=== PATIENT | female | born 1975 | race Caucasian/White ===

== ENCOUNTER 2017-08-23 12:05 | Emergency (ER) | payer BC ==
[~2017-08-23] VITALS: Ht 157.5 cm; Wt 49.9 kg
--- NOTE | 2017-08-23 12:16 | NUR ---
A/OX4, AMBULATORY TO ED BED 14 C/O LOW BACK PAIN AND FREQUENT URINATION SINCE LAST WEEK. PT STARTED TAKING MACROBID YESTERDAY FOR UTI. SHE STARTED HAVING NASUEA AND CHILLS YESTERDAY. PT WAS SEEN AT AN URGENT CARE TODAY AND WAS SENT HERE FOR EVALUATION. PT IS FEBRILE AT 101 'F. ALL NEEDS ARE ATTENDED, KEPT COMFORTABLE. PENDING ER MD EVALUATION
[2017-08-23] MEDS: MORPHINE SULFATE INJ 2 MG/ML DISP.SYRIN IV ONE (12:30)
[2017-08-23 12:44] LABS: BASOPHILS # (AUTO) 0.1 /CMM (0.0-0.2); BASOPHILS % (AUTO) 1.3 % (0.0-2.0); EOSINOPHILS % (AUTO) 0.6 % (0.0-6.0); HEMATOCRIT 41 % (33-45); HEMOGLOBIN 14.1 g/dL (11.5-14.8); LYMPHOCYTES # (AUTO) 0.2 /CMM (0.8-4.8); LYMPHOCYTES % (AUTO) 2.2 % (20.0-44.0); MEAN CORPUSCULAR HGB CONC 34 g/dl (31.0-36.0); MEAN CORPUSCULAR VOLUME 91 fL (82-100); MONOCYTES # (AUTO) 0.1 /CMM (0.1-1.30); MONOCYTES % (AUTO) 1.5 % (2.0-12.0); NEUTROPHILS # (AUTO) 8.9 /CMM (1.8-8.9); NEUTROPHILS % (AUTO) 94.4 % (43.0-81.0); PLATELET COUNT (AUTO) 211 /CMM (150-450); RDW COEFFICIENT OF VARIATION 12.1 (11.5-15.0); RED BLOOD CELL COUNT(AUTO) 4.54 MIL/uL (4.0-5.2); WHITE BLOOD COUNT (AUTO) 9.4 K/uL (4.3-11.0)
[2017-08-23] MEDS ORDERED: MORPHINE SULFATE INJ 4 MG/ML DISP.SYRIN ONE (12:45)
[2017-08-23] MEDS ORDERED: KETOROLAC TROMETHAMINE INJ 30 MG/ML VIAL ONE (12:45)
[2017-08-23] MEDS ORDERED: ONDANSETRON HCL/PF 4 MG/2 ML VIAL ONE (12:45)
[2017-08-23] MEDS ORDERED: CEFTRIAXONE 1GM BAG (ER ONLY) 50 ML IV ONE ×2 (12:45→13:05)
[2017-08-23 12:48] LABS: APPEARANCE,URINE Clear (CLEAR); BILIRUBIN,URINE Negative (NEGATIVE); BLOOD, URINE Negative Ery/uL (NEGATIVE); COLOR,URINE Yellow (YELLOW); KETONES,URINE Negative (NEGATIVE); LEUKOCYTE ESTERASE ,URINE Trace (NEGATIVE); NITRITE, URINE Negative (NEGATIVE); PH,URINE 7.5 (5.0-8.0); PROTEIN,URINE Negative (NEGATIVE); UGLUCOSE Negative (NEGATIVE); UROBILINOGEN,URINE 0.2 EU/dL (0.2)
[2017-08-23 12:52] LABS: CALCIUM, SERUM 8.5 mg/dL (8.5-10.1); CREATININE 0.6 mg/dL (0.6-1.3); POTASSIUM 3.5 mmol/L (3.5-5.1)
[2017-08-23 12:53] LABS: BACTERIA,URINE Few /HPF (None Seen); RBC,URINE 0-2 /HPF (0-2); SQUAMOUS EPITHELIAL CELL,UR Many /HPF (None Seen)
[2017-08-23] MEDS: IV NS 0.9% 1,000 ML BAG IV ONE ×2 (12:56→13:00)
[2017-08-23] MEDS: ONDANSETRON HCL/PF 4 MG/2 ML VIAL IVP ONE (12:57)
[2017-08-23] MEDS: KETOROLAC TROMETHAMINE INJ 30 MG/ML VIAL IV ONE (12:59)
[2017-08-23] MEDS: CEFTRIAXONE 2 G in IV D5W 50 ML IV ONE (12:59)
--- NOTE | 2017-08-23 13:30 | NUR ---
Patient is resting comfortably in bed with eyes closed. Easily aroused. VSS
--- NOTE | 2017-08-23 14:29 | NUR ---
IV removed. Catheter intact and site benign. Pressure and 4x4 applied to site. No bleeding noted.Patient discharged to home in stable condition. Written and verbal after care instructions given. Patient verbalizes understanding of instruction.
[2017-08-23 14:32] VITALS: BP 110/67
== END 2017-08-23 14:39 | disposition home or self-care (01) ==
LOC: ER 12:06
DX: N12 Tubulo-interstitial nephritis, not specified as acute or chronic (principal); Z91.011 Allergy to milk products
CPT/HCPCS: 36415; 80048-TC; 81000-TC; 83605-TC; 84703-TC; 85025-TC; 87040-TC; 87086-TC; A4606; J0696; J1885; J2270; J2405; J7030; J7060; Z7610